=== PATIENT | female | born 1970 | race Caucasian/White ===

== ENCOUNTER 2019-08-25 11:41 | Observation (INO) ==
[2019-08-25] MEDS ORDERED: LORazepam 1 MG TABLET ONE (13:11)
[2019-08-25] MEDS ORDERED: LORazepam 1 MG TABLET PO ONE (15:00)
[2019-08-25] MEDS ORDERED: LORazepam 2 MG/1 ML VIAL IV ONE (15:00)
[2019-08-25] MEDS ORDERED: KETOROLAC 30 MG/1 ML VIAL IV PRN (17:44)
[2019-08-25] MEDS ORDERED: ONDANSETRON 4 MG/2 ML VIAL IV PRN (17:44)
[2019-08-25] MEDS: SODIUM CHLORIDE 0.45% 1,000 ML IV SCH (18:20)
[2019-08-25 18:21] LABS: Bilirubin,Total 0.4 MG/DL (0.2-1.0); Calcium 8.8 MG/DL (8.5-10.1); Osmolality,Calculated 276.4 MOS/KG (273-304); Total Protein 7.7 G/DL (6.4-8.3)
[2019-08-25 18:22] LABS: Basophils # 0.1 10*3/uL (0.0-0.2); Basophils % 0.5 % (0.0-0.8); Eosinophils # 0.1 10*3/uL (0.0-0.87); Eosinophils % 1.2 % (0.00-10.9); Hematocrit 44.4 VOL% (35.7-47.0); Hemoglobin 14.8 GM/DL (12.0-16.0); Immature Granulocytes % 0.2 %; Immature Granulocytes Absolute 0.02 #; Lymphocytes # 2.4 10*3/uL (1.4-4.0); Mean Corpuscular HGB Conc 33.3 GM/DL (32-36); Mean Corpuscular Volume 92.9 FL (87-102); Mean Platelet Volume 10.5 FL (9.6-12.0); Monocytes % 6.9 % (1.7-12.7); Neutrophils % 65.2 % (38.7-73.9); Platelet Count 339 T/CUMM (130-400); Red Blood Count 4.78 MC/CUMM (3.8-5.5); Red Cell Distribution Width 11.7 % (9.3-17.3); White Blood Count 9.2 T/CUMM (4-12)
[2019-08-25] MEDS: DOCUSATE SODIUM 100 MG CAPSULE PO SCH (20:42)
[2019-08-25] MEDS: LORazepam 0.5 MG TABLET PO SCH (20:52)
[2019-08-25] MEDS: DULoxetine 30 MG CAPSULE PO SCH (20:52)
[2019-08-25] MEDS: ESTRADIOL 2 MG TABLET PO SCH (20:52)
[2019-08-26] MEDS: SODIUM CHLORIDE 0.45% 1,000 ML IV SCH ×4 (01:57→23:47)
[2019-08-26 06:19] LABS: Risk Ratio 3.5; VLDL CHOLESTEROL 18.4 MG/DL
[2019-08-26] MEDS: DOCUSATE SODIUM 100 MG CAPSULE PO SCH (08:08)
[2019-08-26] MEDS: ENOXAPARIN 40 MG/0.4 ML SYRINGE SUBCUT SCH (08:09)
[2019-08-26] MEDS: LORazepam 0.5 MG TABLET PO SCH ×2 (08:09→20:10)
[2019-08-26] MEDS: PANTOPRAZOLE 40 MG TABLET PO SCH (08:09)
[2019-08-26] MEDS ORDERED: SUMAtriptan 25 MG TABLET PO ONE (12:19)
[2019-08-26] MEDS ORDERED: IBUPROFEN 400 MG TABLET PO PRN ×2 (12:19→12:35)
[2019-08-26] MEDS ORDERED: SUMAtriptan 25 MG TABLET PO PRN (14:30)
[2019-08-26] MEDS: TOPIRAMATE 25 MG TABLET PO SCH (16:23)
[2019-08-26] MEDS: ESTRADIOL 2 MG TABLET PO SCH (20:10)
[2019-08-27] MEDS: DULoxetine 30 MG CAPSULE PO SCH (01:21)
[2019-08-27] MEDS: DOCUSATE SODIUM 100 MG CAPSULE PO SCH ×2 (01:21→09:02)
[2019-08-27] MEDS: ENOXAPARIN 40 MG/0.4 ML SYRINGE SUBCUT SCH (09:03)
[2019-08-27] MEDS: SODIUM CHLORIDE 0.45% 1,000 ML IV SCH (09:03)
[2019-08-27] MEDS: PANTOPRAZOLE 40 MG TABLET PO SCH (09:03)
[2019-08-27] MEDS: TOPIRAMATE 25 MG TABLET PO SCH (09:03)
[2019-08-27 12:14] VITALS: BP 123/95
[2019-08-27] MEDS ORDERED: busPIRone 5 MG TABLET PO SCH (13:00)
== END 2019-08-27 15:09 | disposition home or self-care (01) ==
LOC: N.ED 11:41 → N.EDINP 11:41 → N.2W 14:51
PROVIDERS: ADMIT Family Medicine; ATTEND Family Medicine